=== PATIENT | female | born 1950 | race Native Hawaiian/Other Pacific Islander ===

== ENCOUNTER → 2017-02-28 | Outpatient (CLI) | payer MEDICARE ==
[~2017-02-28] MED LIST: DENOSUMAB 60 MG/ML 1 ML SYRINGE SQ NR
[2017-02-28 13:27] VITALS: BP 134/82; PULSE 72; RESP 16; TEMP 97.6
== END | disposition home or self-care (01) ==
LOC: PROCWHC3 12:26
PROVIDERS: ATTEND Family Medicine
DX: M81.0 Age-related osteoporosis without current pathological fracture (principal)
CPT/HCPCS: 96372; J0897

== ENCOUNTER → 2018-01-29 | Outpatient (CLI) | payer MEDICARE ==
--- NOTE | 2018-01-31 08:42 | MM ---
Reason for exam: screening (asymptomatic). Last mammogram was performed 1 year and 3 months ago. History: Patient is postmenopausal. Physical Findings: A clinical breast exam by your physician is recommended on an annual basis and results should be correlated with mammographic findings. MG 3D Screening Mammo W/Cad Bilateral CC and MLO view(s) were taken. Prior study comparison: October 20, 2016, bilateral MG 3d screening mammo w/cad. December 01, 2014, bilateral MG screening mammo w CAD. There are scattered fibroglandular densities. No significant changes when compared with prior studies. ASSESSMENT: Benign, BI-RAD 2 RECOMMENDATION: Routine screening mammogram of both breasts in 1 year.
== END | disposition home or self-care (01) ==
LOC: RADMAMWWP 13:38
PROVIDERS: ATTEND Family Medicine
DX: Z12.31 Encounter for screening mammogram for malignant neoplasm of breast (principal)
CPT/HCPCS: 77063; 77067

== ENCOUNTER → 2018-04-07 | Outpatient (CLI) | payer MEDICARE ==
[2018-04-07 10:56] LABS: Basophils # (A) 0.1 k/uL (0-0.2); Basophils % (A) 2 %; Eosinophils # (A) 0.1 k/uL (0-0.7); Eosinophils % (A) 2 %; HCT 39.8 % (34.0-46.0); Lymphocytes # (A) 1.4 k/uL (1.0-4.8); Lymphocytes % (A) 28 %; MCHC 32.6 g/dL (31.0-37.0); MCV 88.9 fL (80.0-100.0); Mean Platelet Volume 7.2; Monocytes # (A) 0.3 k/uL (0-1.0); Monocytes % (A) 5 %; Neutrophils % (A) 59 %; Platelet Count 234 k/uL (150-450); RBC 4.48 m/uL (3.80-5.40); RDW 12.1 % (11.5-15.5)
[2018-04-07 11:10] LABS: Potassium 4.6 mmol/L (3.5-5.1)
== END | disposition home or self-care (01) ==
LOC: LABPAT 10:00
PROVIDERS: ATTEND Obstetrics & Gynecology
DX: Z01.812 Encounter for preprocedural laboratory examination (principal); N81.10 Cystocele, unspecified; Z01.818 Encounter for other preprocedural examination
CPT/HCPCS: 36415; 80051; 82565; 82947; 84520; 85025; 87086; 93005

== ENCOUNTER 2018-04-17 05:46 | Day surgery (SDC) | payer MEDICARE ==
[2018-04-04 10:52] VITALS: BMI 26.5
--- NOTE | 2018-04-11 14:43 | HP ---
HISTORY AND PHYSICAL This is a 67-year-old female who presented to the office with increasing pelvic pressure, exacerbated by walking and any type of physical activity. She denies vaginal bleeding, urine leakage, or any bowel symptomatology. Examination in the office is consistent with grade 2-3 uterine prolapse along with grade 3-4 cystocele. No obvious rectocele was noted, good vaginal cuff support is noted. After consultation, patient is declining option for pessary use and would like to proceed with surgical repair. Second opinion has been offered and declined. PAST MEDICAL HISTORY: Significant for acquired hypothyroidism. PAST SURGICAL HISTORY: Surgery of the right wrist in 1998. CURRENT MEDICATIONS: 1. Levothyroxine 1 pill daily. 2. Vitamin B6 daily. 3. Vitamin C daily. 4. Vitamin D3 daily. 5. Citracal orally daily. ALLERGIES: None known. FAMILY HISTORY: Significant for heart disease, heart attack, and dementia. REPRODUCTIVE HISTORY: Significant for normal spontaneous vaginal delivery x4, all healthy and without complication. 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 PHYSICAL EXAM: This is a pleasant female, 5 foot 1 inch, 150 pounds, BMI 28, blood pressure 124/82. HEENT exam reveals good dentition, no thyromegaly, no cervical lymphadenopathy, good range of motion in the neck. BREAST exam reveals them to be bilaterally symmetric to inspection, atrophic, no nipple discharge, axillary adenopathy, discernible lesions or masses or skin changes. CARDIAC exam reveals regular rate and rhythm with no murmur, click, or rub. CHEST: Clear to auscultation in all parekh anteriorly and posteriorly. ABDOMINAL exam reveals a nontender abdomen, no organosplenomegaly, active bowel sounds. No CVA tenderness. EXTREMITIES reveal good peripheral pulses, no obvious edema, good range of motion. On examination of the genitourinary tract, there is a grade 3-4 cystocele noted, otherwise normal vaginal vault. Grade 2-3 uterine prolapse, no obvious cervical lesions. Adnexa are small, mobile, nontender, equal and symmetric bilaterally. Rectal exam reveals good sphincter tone, FIT negative stool. ASSESSMENT: Grade 2 to 3 uterine prolapse, increasing symptomatic Grade 4 cystocele. Patient choosing surgical correction. PLAN: The ACOG pamphlet on this procedure has been given to the patient for her review. All questions have been answered. We have discussed the risk of bleeding, infection, perforation, or damage to bowel, bladder, ureters, blood vessels, the unlikely but possible need for blood transfusion. We have discussed the possible risk of aspiration, nerve damage or even from the anesthesia or the procedure. All questions are answered. We will proceed with surgery as noted above. DORIAN / IJN: [id number] /
[~2018-04-17 05:46] MED LIST changes: -DENOSUMAB 60 MG/ML 1 ML SYRINGE SQ NR; +ceFAZolin IN SWFI 2 GM/20 ML SYRINGE IVP ONE
[2018-04-17] MEDS ORDERED: HYDROmorphone 0.5 MG/0.5 ML SYRINGE IVP PRN (06:13)
[2018-04-17] MEDS ORDERED: NALOXONE 0.4 MG/ML 1 ML VIAL IV PRN ×2 (06:13→08:17)
[2018-04-17] MEDS ORDERED: fentaNYL (PF) 50 MCG/ML 2 ML AMP IV PRN (06:13)
[2018-04-17] MEDS ORDERED: SCOPOLAMINE 1.5MG/72HR PATCH TRANSDERM ONE (06:13)
[2018-04-17] MEDS ORDERED: LIDOCAINE 1% 20 ML VIAL (10MG/ML) FOR IV START INTRADERMA PRN (06:13)
[2018-04-17] MEDS ORDERED: NALBUPHINE 10 MG/ML AMPUL IV PRN ×2 (06:13→08:17)
[2018-04-17] MEDS ORDERED: diphenhydrAMINE 50 MG/ML 1 ML VIAL IVP PRN ×3 (06:13→08:41)
[2018-04-17] MEDS ORDERED: MIDAZOLAM 2 MG/2 ML VIAL IV PRN (06:13)
[2018-04-17] MEDS ORDERED: DEXAMETHASONE SOD PHOSPHATE 10 MG/ML 1 ML VIAL IV ONE (06:13)
[2018-04-17] MEDS ORDERED: LACTATED RINGERS 1,000 ML IV SCH (06:15)
[2018-04-17] MEDS ORDERED: LACTATED RINGERS 1,000 ML IV ONE (06:57)
[2018-04-17] MEDS ORDERED: ONDANSETRON 4 MG/2 ML VIAL IVP ONE (06:59)
[2018-04-17] MEDS ORDERED: MIDAZOLAM 2 MG/2 ML VIAL ONE (07:29)
[2018-04-17] MEDS ORDERED: GLYCOPYRROLATE 0.2 MG/ML 2 ML VIAL ONE (07:29)
[2018-04-17] MEDS ORDERED: VASOPRESSIN 20 UNIT/ML 1 ML VIAL IM ONE (07:50)
[2018-04-17] MEDS ORDERED: MORPHINE SULFATE 4 MG/ML SYRINGE IVP PRN (08:17)
[2018-04-17] MEDS ORDERED: ONDANSETRON 4 MG/2 ML VIAL IVP PRN ×2 (08:17→08:41)
[2018-04-17] MEDS ORDERED: BACITRACIN 500 UNIT/GM OINT 28.4 GM TUBE TOPICAL ONE (08:19)
[2018-04-17] MEDS ORDERED: IBUPROFEN 600 MG TAB PO PRN (08:41)
[2018-04-17] MEDS ORDERED: Acetaminophen-Codeine 300-30mg TAB PO PRN (08:41)
[2018-04-17] MEDS ORDERED: METOCLOPRAMIDE 5 MG/ML 2 ML VIAL IVP PRN (08:41)
--- NOTE | 2018-04-17 08:41 | P.OP ---
Date of Procedure: 04/17/18 Preoperative Diagnosis: Uterine prolapse, cystocele Postoperative Diagnosis: Same, normal-appearing ovaries bilaterally Procedure(s) Performed: Vaginal hysterectomy, anterior colporrhaphy Anesthesia: ALETAA Surgeon: Liliana Granado Electrical Integrator #1: Eugenio Evans Estimated Blood Loss (ml): 25 IV fluids (ml): 700 Urine output (ml): 200 Pathology: other (Cervix and uterus) Condition: stable Disposition: PACU Description of Procedure: Patient is brought to the Ring suite where a spinal with Duramorph is given. She is positioned in the dorsal lithotomy position. The appropriate timeout is performed to assure proper patient and procedural identification. Antibiotics are given. The cervix, vagina, perineum and lower abdominal areas are all prepped and draped in usual sterile fashion. Bladder is drained for 200 mL of clear yellow urine. The weighted speculum was placed into the vagina and the anterior lip of the cervix is grasped with a double-tooth tenaculum. The cervix is injected circumferentially with a dilute Pitressin solution. A three affiliated blade scalpel is used to incise the cervix circumferentially with a V like positioning in the back.Mucosa is swept from the underlying fascial plane using a sponge. The peritoneum is entered at 6:00 and suture tied with 2-0 Vicryl. The large billed speculum was placed. Uterosacral cardinal ligaments are identified, clamped cut and held laterally with 0 Vicryl. 2 additional stitches are taken above each uterosacral cardinal ligament to completely obliterate the vasculature. Again, care is taken to keep the mucosa swept well from the plane to avoid bladder and/or ureteral injury. The uterus is "walked out" posteriorly, Fredy clamps are used across the final pedicles. Specimen is removed. The pedicles are tied with 0 Vicryl suture in a Lonnie stitch, flashed, and retied for excellent hemostasis. Sponge is used to visualize both ovaries and these are within normal limits, atrophic, and left in situ per the patient's wishes. The 2-0 Vicryl suture that was placed at 6:00 is then brought around in a pursestring fashion to close the peritoneum. The uterosacral cardinal ligaments are brought across to incorporate the opposite ligament and vaginal mucosa. 2 additional figure-of- eight sutures of 0 Vicryl are placed on the mucosa to close the cuff. Allis clamps are used on the anterior mucosa and it is injected with the same dilute Pitressin solution in the midline to approximately 1-1/2 cm inferior to the urethra. Sinclair catheter is placed in the bladder is again drained. You close it is opened with Metzenbaum scissors, the edges are held with Allis clamps and a fanlike fashion. Sponge rolled finger is used to sweep the underlying fascia from the overlying mucosa. 2-0 Vicryl sutures used in an interrupted fashion to bring the fascial edges together in the midline thereby completely reducing the cystocele. Metzenbaum scissors are used to trim the redundant mucosa. 2-0 Vicryl is used in a running locking stitch for final closure. Vagina is clean and dry. It is packed with one-inch iodophor gauze. All sponge needle and enhancement counts are correct. Patient is brought back to the recovery room in very good condition with stable vital signs including blood pressure 119/72, pulse 68, 98 and O2 saturation.
[2018-04-17] MEDS: KETOROLAC 30 MG/ML 1 ML VIAL IVP PRN ×3 (08:52→23:11)
[2018-04-17 23:07] VITALS: RESP 16
--- NOTE | 2018-04-18 05:57 | P.PN ---
Progress Note - Text Progress Note Date: 04/18/18 67 yo female Status post vaginal hysterectomy. Post-op day #1. Patient received intrathecal Duramorph. Patient was seen today, sitting up in bed no complaints, pain VAS score 2/10, no headache, no itching, no nausea and vomiting. Assessment and plan: Doing well in general no complications from anesthesia.
[2018-04-18] MEDS: KETOROLAC 30 MG/ML 1 ML VIAL IVP PRN (06:50)
--- NOTE | 2018-04-18 07:50 | P.DS ---
Providers Date of admission: 04/17/18 Expected date of discharge: 04/18/18 Attending physician: Liliana Granado Primary care physician: [facility] Course: This is a 67-year-old 3 para 3 who presented with an increasingly symptomatic cystocele and uterine prolapse. After thorough consultation, decision was made to proceed with vaginal hysterectomy and cystocele repair. Please see my dictated history and physical for details. Patient was admitted and underwent cystocele repair and vaginal hysterectomy yesterday. Ovaries appeared normal and were left in situ. Surgery went well, vagina was packed with iodoform gauze and Sinclair catheter placed. Please see my dictated operative note for details. This morning the patient is doing well. Her Sinclair catheter and vaginal packing had been removed. There is scant vaginal bleeding. She is tolerating regular food, voiding and ambulating. We are awaiting spontaneous void and we'll measure voided and postvoid residual at that time. She is having no pain at this point. Patient will likely be discharged home later today. She is in very good condition for discharge home. She will follow-up with me in the office in 2 weeks. I have reminded her no intercourse, tampons or douching. She will use [id number] Advil as needed for pain. She will call with any fevers shakes or chills, back pain, vaginal bleeding, with any issues questions or concerns. No heavy lifting, no car driving for 2 weeks. Patient Condition at Discharge: Good Plan - Discharge Summary Discharge Rx Participant: No New Discharge Prescriptions: No Action Pyridoxine [Vitamin B-6] 50 mg PO DAILY Levothyroxine Sodium [Levo-T] 75 mcg PO DAILY Cholecalciferol [Vitamin D3] 1,000 unit PO DAILY Ascorbic Acid [Vitamin C] 500 mg PO DAILY Calcium Carb/Vitamin D3/Vit K1 [Citracal Soft Chew] 1 each PO DAILY Discharge Medication List Ascorbic Acid [Vitamin C] 500 mg PO DAILY 02/28/17 [History] Cholecalciferol [Vitamin D3] 1,000 unit PO DAILY 02/28/17 [History] Levothyroxine Sodium [Levo-T] 75 mcg PO DAILY 02/28/17 [History] Pyridoxine [Vitamin B-6] 50 mg PO DAILY 02/28/17 [History] Calcium Carb/Vitamin D3/Vit K1 [Citracal Soft Chew] 1 each PO DAILY 04/04/18 [ History] Follow up Appointment(s)/Referral(s): Liliana Granado MD [STAFF PHYSICIAN] - 2 Weeks Patient Instructions/Handouts: Hysterectomy (DC)
[2018-04-18 08:32] VITALS: BP 110/60; PULSE 63; TEMP 99.1
== END 2018-04-18 11:20 | disposition home or self-care (01) ==
LOC: OR 05:46 → 4FBP 08:30 → OR 04-18 11:20
PROVIDERS: ATTEND Obstetrics & Gynecology
DX: N81.4 Uterovaginal prolapse, unspecified (principal); E03.9 Hypothyroidism, unspecified; Z79.890 Hormone replacement therapy
CPT/HCPCS: 58260; 57240; 88307; J2250; J1100; J2765; J2405; J1885 ×2; J0690; 86850; 86900; 86901

== ENCOUNTER → 2018-06-01 | Outpatient (CLI) | payer MEDICARE ==
[~2018-06-01] MED LIST changes: +DENOSUMAB 60 MG/ML 1 ML SYRINGE SQ NR; -ceFAZolin IN SWFI 2 GM/20 ML SYRINGE IVP ONE
[2018-06-01 11:28] VITALS: BP 126/79; PULSE 65; RESP 15; TEMP 97.9
== END | disposition home or self-care (01) ==
LOC: PROCWHC3 11:18
PROVIDERS: ATTEND Family Medicine
DX: M81.0 Age-related osteoporosis without current pathological fracture (principal)
CPT/HCPCS: 96372; J0897

== ENCOUNTER → 2018-10-22 | Outpatient (CLI) | payer MEDICARE ==
--- NOTE | 2018-10-22 12:52 | BD ---
EXAMINATION TYPE: Axial Bone Density DATE OF EXAM: 10/22/2018 CLINICAL HISTORY: Postmenopausal female. Osteoporosis screening. Height: 61.5 Weight: 147 FRAX RISK QUESTIONS: Alcohol (3 or more units per day): no Family History (Parent hip fracture): no Glucocorticoids (More than 3mos): no (Ex: prednisone, prednisolone, methylprednisolone, dexamethasone, and hydrocortisone). History of Fracture in Adulthood: yes Secondary Osteoporosis: 1. Type 1 Diabetes: no 2. Hyperthyroidism: not now, now underactive 3. Menopause before 45: no 4. Malnutrition: no 5. Chronic liver disease: no Rheumatoid Arthritis: no Current Tobacco Use: no RISK FACTORS HISTORY OF: History of Wrist Fracture: yes When: over 10 years ago Surgery to Wrist (right): yes When: over 10 years ago Family History of Osteoporosis: maybe mother Active: yes Diet low in dairy products/other sources of calcium: no Postmenopausal woman: yes Take estrogen and/or progesterone medications: no Lost more than 2 inches in height since high school: unsure, may have been about 63 inches tall at on e time Frequent falls: no Poor Health: no Hyperparathyroidism: no Adrenal Insufficiency: no MEDICATIONS: Prednisone or other steroids: no Thyroid Medications: yes Which medication: Levothyroxine How Long: about 5 years or more Osteoporosis Medications: yes Which medication: Prolia How Long: every 6 months Additional Medications: Vitamin B, C, D, Glucosamine Additional History: EXAM MEASUREMENTS: Bone mineral densitometry was performed using the MMIS System. Bone mineral density as measured about the Lumbar spine is: ----- L1-L4(G/cm2): 0.991 T Score Values are as follows: ----- L2: -2.3 ----- L3: -1.9 ----- L4: -1.5 ----- L1-L4: -1.6 Bone mineral density has: Decreased -0.9% since study of: 10/20/2016 Bone mineral density about the R hip (g/cm2): 0.742 Bone mineral density about the L hip (g/cm2): 0.740 T Score values are as follows: -----R Neck: -2.1 -----L Neck: -2.1 -----R Total: -1.2 -----L Total: -1.7 Bone mineral density has: Increased 1.5% since study of: 10/20/2016 IMPRESSION: Osteopenia (T Score between -2.5 and -1). There is slightly increased risk of fracture and the patient may be considered for treatment. Re-Screen 2-5 years. NOTE: T-SCORE=SD OF THE YOUNG ADULT MEAN.
== END | disposition home or self-care (01) ==
LOC: RADBDWWP 09:41
PROVIDERS: ATTEND Family Medicine
DX: M85.80 Other specified disorders of bone density and structure, unspecified site (principal)
CPT/HCPCS: 77080

== ENCOUNTER → 2018-12-05 | Outpatient (CLI) | payer MEDICARE ==
[~2018-12-05] MED LIST changes: -DENOSUMAB 60 MG/ML 1 ML SYRINGE SQ NR; +DENOSUMAB 60 MG/ML 1 ML SYRINGE SQ ONE
[2018-12-05 11:22] VITALS: BP 130/81; PULSE 68; RESP 16; TEMP 97.8
== END | disposition home or self-care (01) ==
LOC: PROCWHC3 10:49
PROVIDERS: ATTEND Family Medicine
DX: M81.0 Age-related osteoporosis without current pathological fracture (principal)
CPT/HCPCS: 96372; J0897

== ENCOUNTER → 2019-03-23 | Outpatient (CLI) | payer MEDICARE ==
--- NOTE | 2019-03-25 09:49 | MM ---
Reason for exam: screening (asymptomatic). Last mammogram was performed 1 year and 2 months ago. History: Patient is postmenopausal. Physical Findings: A clinical breast exam by your physician is recommended on an annual basis and results should be correlated with mammographic findings. MG 3D Screening Mammo W/Cad Bilateral CC and MLO view(s) were taken. Prior study comparison: January 29, 2018, bilateral MG 3d screening mammo w/cad. October 20, 2016, bilateral MG 3d screening mammo w/cad. There are scattered fibroglandular densities. There is no discrete abnormality. No significant changes when compared with prior studies. ASSESSMENT: Negative, BI-RAD 1 RECOMMENDATION: Routine screening mammogram of both breasts in 1 year.
== END | disposition home or self-care (01) ==
LOC: RADMAMWWP 09:49
PROVIDERS: ATTEND Family Medicine
DX: Z12.31 Encounter for screening mammogram for malignant neoplasm of breast (principal)
CPT/HCPCS: 77063; 77067

== ENCOUNTER → 2019-06-19 | Outpatient (CLI) | payer MEDICARE ==
[2019-06-19 11:15] VITALS: BP 131/71; PULSE 59; RESP 16; TEMP 98.6
== END | disposition home or self-care (01) ==
LOC: PROCWHC3 10:58
PROVIDERS: ATTEND Family Medicine
DX: M81.0 Age-related osteoporosis without current pathological fracture (principal)
CPT/HCPCS: 96372; J0897

== ENCOUNTER 2019-09-06 10:58 | Day surgery (SDC) | payer MEDICARE ==
[2019-09-04 14:30] VITALS: BMI 26.5
[~2019-09-06 10:58] MED LIST changes: -DENOSUMAB 60 MG/ML 1 ML SYRINGE SQ ONE; +LACTATED RINGERS 1,000 ML IV SCH; +LIDOCAINE 1% 20 ML VIAL (10MG/ML) FOR IV START INTRADERMA PRN
[2019-09-06 12:00] VITALS: RESP 16; TEMP 97.8
[2019-09-06] MEDS ORDERED: PROPOFOL 10 MG/ML 20 ML VIAL IV ONE (12:38)
--- NOTE | 2019-09-06 12:54 | P.PCN ---
Date of Procedure: 09/06/19 Procedure(s) Performed: BRIEF HISTORY: Patient is a 68-year-old pleasant female scheduled for an elective colonoscopy as a part of screening for colorectal neoplasia. Last colonoscopy was 10 years ago. PROCEDURE PERFORMED: Colonoscopy. PREOPERATIVE DIAGNOSIS: Screening for colon cancer. IV sedation per Anesthesia. PROCEDURE: After informed consent was obtained, the patient, was brought into the endoscopy unit. IV sedation was administered by Anesthesia under continuous monitoring. Digital rectal examination was normal. Initially the Olympus CF-160 flexible video colonoscope was then inserted in the rectum, gradually advanced into the cecum without any difficulty. Careful examination was performed as the scope was gradually being withdrawn. Ileocecal valve and the appendiceal orifice were visualized and appeared normal. Prep was excellent. Mucosa of the cecum, ascending colon, transverse colon, descending colon, sigmoid colon, and rectum appeared normal. Scattered left sided diverticulosis seen. Retroflexion was performed in the rectum and no lesions were seen. The patient tolerated the procedure well. IMPRESSION: Normal-appearing colon from rectum to cecum with no evidence of colorectal neoplasia. Scattered sigmoid diverticulosis RECOMMENDATIONS: Findings of this examination were discussed with the patient as well as a family. She was advised to have a repeat screening colonoscopy in 10 years.
[2019-09-06 13:22] VITALS: BP 128/82; PULSE 81
== END 2019-09-06 13:46 | disposition home or self-care (01) ==
LOC: ORWHC2ENDO 10:58
PROVIDERS: ATTEND Internal Medicine Gastroenterology
DX: Z12.11 Encounter for screening for malignant neoplasm of colon (principal); K57.30 Diverticulosis of large intestine without perforation or abscess without bleeding; E07.9 Disorder of thyroid, unspecified; Z79.890 Hormone replacement therapy
CPT/HCPCS: J2704; G0121

== ENCOUNTER → 2019-12-24 | Outpatient (CLI) | payer MEDICARE ==
[~2019-12-24] MED LIST changes: +DENOSUMAB 60 MG/ML 1 ML SYRINGE SQ ONE; -LACTATED RINGERS 1,000 ML IV SCH; -LIDOCAINE 1% 20 ML VIAL (10MG/ML) FOR IV START INTRADERMA PRN
[2019-12-24 14:41] VITALS: BP 115/67; PULSE 67; RESP 16; TEMP 98.1
== END | disposition home or self-care (01) ==
LOC: PROCWHC3 14:10
PROVIDERS: ATTEND Family Medicine
DX: M81.0 Age-related osteoporosis without current pathological fracture (principal)
CPT/HCPCS: 96372

== ENCOUNTER → 2020-07-01 | Outpatient (CLI) | payer MEDICARE, OTHER ==
[~2020-07-01] MED LIST changes: +DENOSUMAB 60 MG/ML 1 ML SYRINGE SQ NR; -DENOSUMAB 60 MG/ML 1 ML SYRINGE SQ ONE
[2020-07-01 14:37] VITALS: BP 138/75; PULSE 68; RESP 16; TEMP 98.2
== END | disposition home or self-care (01) ==
LOC: PROCWHC3 14:23
PROVIDERS: ATTEND Family Medicine
DX: M81.0 Age-related osteoporosis without current pathological fracture (principal)
CPT/HCPCS: 96372; J0897

== ENCOUNTER → 2021-01-08 | Outpatient (CLI) | payer MEDICARE ==
[2021-01-08 13:39] VITALS: BP 139/79; PULSE 67; RESP 16; TEMP 98.5
== END | disposition home or self-care (01) ==
LOC: PROCWHC3 13:22
PROVIDERS: ATTEND Family Medicine
DX: M81.0 Age-related osteoporosis without current pathological fracture (principal)
CPT/HCPCS: 96372; J0897

== ENCOUNTER → 2021-07-30 | Outpatient (CLI) | payer MEDICARE ==
--- NOTE | 2021-08-02 10:25 | MM ---
Reason for exam: screening (asymptomatic). Last mammogram was performed 1 year and 2 months ago. History: Patient is postmenopausal. Physical Findings: A clinical breast exam by your physician is recommended on an annual basis and results should be correlated with mammographic findings. MG 3D Screening Mammo W/Cad Bilateral CC and MLO view(s) were taken. Prior study comparison: June 12, 2020, bilateral MG 3d screening mammo w/cad. March 23, 2019, bilateral MG 3d screening mammo w/cad. There are scattered fibroglandular densities. Stable benign calcifications. There is no discrete abnormality. No significant changes when compared with prior studies. ASSESSMENT: Benign, BI-RAD 2 RECOMMENDATION: Routine screening mammogram of both breasts in 1 year.
== END | disposition home or self-care (01) ==
LOC: RADMAMWWP 11:33
PROVIDERS: ATTEND Family Medicine
DX: Z12.31 Encounter for screening mammogram for malignant neoplasm of breast (principal); Z78.0 Asymptomatic menopausal state
CPT/HCPCS: 77063; 77067

== ENCOUNTER → 2021-08-05 | Outpatient (CLI) | payer MEDICARE ==
--- NOTE | 2021-08-05 18:47 | BD ---
EXAMINATION TYPE: Axial Bone Density DATE OF EXAM: 08/05/2021 COMPARISON: 10.22.2018 CLINICAL HISTORY: 70 YR OLD FEMALE.....ICD-10 CODE: M81.0 OSTEOPOROSIS Height: 61 Weight: 149 FRAX RISK QUESTIONS: History of Fracture in Adulthood: YES RISK FACTORS HISTORY OF: History of Wrist Fracture: YES, HER RIGHT, AN ADULT Surgery to TO RT WRIST AN ADULT Postmenopausal woman: YES AT AGE 48 YRS OLD Hyperparathyroidism: NO Adrenal Insufficiency: NO MEDICATIONS: Thyroid Medications: YES, SYNTHROID PRODUCT, FOR ABOUT 8 YRS Osteoporosis Medications: PROLIA, FOR ABOUT 3 YRS Additional Medications: VIT D AND C Additional History: THYROID ONLY EXAM MEASUREMENTS: Bone mineral densitometry was performed using the HiperScan System. Bone mineral density as measured about the Lumbar spine is: ----- L1-L4(G/cm2): 1.045 T Score Values are as follows: ----- L1: -0.1 ----- L2: -1.8 ----- L3: -2.1 ----- L4: -0.7 ----- L1-L4: -1.1 Bone mineral density has: Increased 4.4% since study of: 10.22.2018 Bone mineral density about the R hip (g/cm2): 0.899 Bone mineral density about the L hip (g/cm2): 0.812 T Score values are as follows: -----R Neck: -2.0 -----L Neck: -1.7 -----R Total: -0.9 -----L Total: -1.6 Bone mineral density has: Increased 3.6% since study of: 10.22.2018 FRAX%s: THERE IS A 11.4% CHANCE FOR A MAJOR OSTEOPOROTIC FX AND A 2.3% FOR HIP.....PROBABILITY FO R FX IN 10 YRS TIME IMPRESSION: Osteopenia (T Score between -2.5 and -1). There is slightly increased risk of fracture and the patient may be considered for treatment. Re-Screen 2-5 years. NOTE: T-SCORE=SD OF THE YOUNG ADULT MEAN.
== END | disposition home or self-care (01) ==
LOC: RADBDWWP 10:45
PROVIDERS: ATTEND Family Medicine
DX: M85.89 Other specified disorders of bone density and structure, multiple sites (principal)
CPT/HCPCS: 77080

== ENCOUNTER → 2021-08-24 | Outpatient (CLI) | payer MEDICARE ==
[2021-08-24 10:59] VITALS: BP 119/79; PULSE 79; RESP 16; TEMP 98.8
== END ==
LOC: PROCWHC3 10:38
PROVIDERS: ATTEND Family Medicine
DX: M81.0 Age-related osteoporosis without current pathological fracture (principal); Z87.891 Personal history of nicotine dependence
CPT/HCPCS: 96372; J0897

== ENCOUNTER → 2022-10-19 | Outpatient (CLI) | payer MEDICARE ==
--- NOTE | 2022-10-19 13:41 | MM ---
Reason for Exam: Screening (asymptomatic). Last mammogram was performed 1 year(s) and 2 month(s) ago. Patient History: Menarche at age 14. First Full-Term at age 22. Postmenopausal. Risk Values: Sheri 5 year model risk: 1.4%. NCI Lifetime model risk: 3.8%. Prior Study Comparison: 03/23/2019 Bilateral Screening Mammogram, [facility]. 06/12/2020 Bilateral Screening Mammogram, [facility]. 07/30/2021 Bilateral Screening Mammogram, [facility]. Tissue Density: There are scattered fibroglandular densities. Findings: Analyzed By CAD. There is no suspicious group of microcalcifications or new suspicious mass in either breast. Overall Assessment: Negative, BI-RAD 1 Management: Screening Mammogram of both breasts in 1 year. A clinical breast exam by your physician is recommended on an annual basis and results should be correlated with mammographic findings. Electronically signed and approved by: Mil Mclaughlin M.D. Radiologis
== END | disposition home or self-care (01) ==
LOC: RADMAMWWP 11:01
PROVIDERS: ATTEND Family Medicine
DX: Z12.31 Encounter for screening mammogram for malignant neoplasm of breast (principal); Z78.0 Asymptomatic menopausal state
CPT/HCPCS: 77063; 77067

== ENCOUNTER → 2023-05-10 | Outpatient (CLI) | payer MEDICARE ==
--- NOTE | 2023-05-10 12:48 | CA ---
Exercise Stress Test Report Name: Olimpia De La Torre Exam Date: 05/10/2023 11:07 Exam Location: [place] Stress Ht (in): 62 Wt (lb): 149 BSA: 1.69 Ordering Phys: Pool Singh DO Referring Phys: Day Hackett PAC Technologist: Aron Harmon Age: 72 Gender: F : 1950 Procedure CPT: Indications: R06.02 SOB ICD-10 Codes: Patient History: DIFFICULTY IN BREATHING, PALPITAITONS, ELEVATED CHOLESTEROL LEVELS, FAMILY HX OF HEART DISEASE Medications: LEVOTHYROXINE,,,,,, ROSUVASTATIN,,,,, Meds past 24 hrs: Pretest Chest Pain: STRESS TEST Jordan Protocol Exercise Duration (min:sec): 04:[address] Depressions (mm): Angina Score: Rai Score: Resting HR (bpm): 69 Peak HR (bpm): 139 Resting BP (mmHg): 114 / 66 Peak BP (mmHg): 181 / 71 MPHR: 147 Target HR: 125 % MPHR: 95 METS: 6.5 Total Dose: Peak Dose: Atropine: Double Product: 87421 BP Response: Stress Termination: TARGET HR REACHED/MAX EXERTION Stress Symptoms: DIFFICULTY IN BREATHING Stress Summary: ECG ANALYSIS Resting ECG: Stress ECG: CONCLUSIONS Patient underwent exercise stress EKG with a Jordan protocol treadmill stress test. Patient exercised into Stage 1 for a total of 4 minutes reaching a total of 6.5 METS. Patient's maximum heart rate was 139 which represented 94% age-predicted maximum heart rate. Stress EKG findings: At baseline patient's EKG showed normal sinus rhythm, normal axis, no significant ST-T wave abnormalities. At peak exercise, EKG showed nonspecific 0.[address] depressions which is nonspecific. Conclusions: 1. Normal EKG response to exercise without evidence of inducible ischemia. 2. Poor exercise capacity. Dr. Manny Younger DO (Electronically Signed) Final Date: 10 May 2023 12:48
--- NOTE | 2023-05-11 12:19 | CA ---
Transthoracic Echo Report Name: Olimpia De La Torre Age: 72 Gender: F : 1950 Exam Date: 05/10/2023 11:32 Exam Location: [place] Echo Ht (in): 62 Wt (lb): 149 Ordering Physician: Pool Singh DO Attending/Referring Phys: Day Hackett PAC [employer] Molder Jacque Fountain RDCS Procedure CPT: Indications: R06.02 SOB Cardiac Hx: Technical Quality: Poor Contrast 1: Total Dose (mL): Contrast 2: Total Dose (mL): MEASUREMENTS (Male / Female) Normal Values 2D ECHO LV Diastolic Diameter PLAX 3.6 cm 4.2 - 5.9 / 3.9 - 5.3 cm LV Systolic Diameter PLAX 2.5 cm IVS Diastolic Thickness 0.8 cm 0.6 - 1.0 / 0.6 - 0.9 cm LVPW Diastolic Thickness 0.8 cm 0.6 - 1.0 / 0.6 - 0.9 cm LV Relative Wall Thickness 0.4 RV Internal Dim ED PLAX 3.5 cm LA Volume 36.1 cm??? 18 - 58 / 22 - 52 cm??? M-MODE Aortic Root Diameter MM 2.9 cm LA Systolic Diameter MM 4.0 cm LA Ao Ratio MM 1.4 AV Cusp Separation MM 2.1 cm DOPPLER AV Peak Velocity 123.7 cm/s AV Peak Gradient 6.1 mmHg AV Mean Velocity 85.7 cm/s AV Mean Gradient 3.4 mmHg AV Velocity Time Integral 24.5 cm LVOT Peak Velocity 100.6 cm/s LVOT Peak Gradient 4.1 mmHg LVOT Velocity Time Integral 19.6 cm MV Area PHT 2.8 cm??? Mitral E Point Velocity 54.0 cm/s Mitral A Point Velocity 83.1 cm/s Mitral E to A Ratio 0.6 MV Deceleration Time 270.0 ms MV E' Velocity 6.8 cm/s Mitral E to MV E' Ratio 8.0 TR Peak Velocity 202.3 cm/s TR Peak Gradient 16.4 mmHg Right Ventricular Systolic Press 21.0 mmHg FINDINGS Left Ventricle Normal Left ventricular size, wall thickness, systolic function with no obvious regional wall motion abnormalities. Normal Left ventricular diastolic filling pattern. Left ventricular ejection fraction is estimated at 55-60 %. Right Ventricle Normal right ventricular size.. Right ventricular systolic pressure within normal limits. Right Atrium Normal right atrial size. Left Atrium Normal left atrial size. Interatrial septal aneurysm. Mitral Valve Structurally normal mitral valve. Trace to mild mitral regurgitation. Aortic Valve Trileaflet aortic valve. No aortic valve stenosis or regurgitation. Thickened aortic valve without stenosis. Tricuspid Valve Structurally normal tricuspid valve. Mild tricuspid regurgitation. Pulmonic Valve Structurally normal pulmonic valve. Trace pulmonic regurgitation. Pericardium No pericardial effusion. Aorta Normal size aortic root and proximal ascending aorta. CONCLUSIONS Left ventricular ejection fraction 55-60% Trace to mild mitral regurgitation Mild tricuspid regurgitation Previewed by: Dr. Manny Younger DO (Electronically Signed) Final Date: 11 May 2023 12:18
== END | disposition home or self-care (01) ==
LOC: RADNMMAIN 10:37
PROVIDERS: ATTEND Family Medicine
DX: R06.02 Shortness of breath (principal); R53.83 Other fatigue
CPT/HCPCS: 93017; 93306

== ENCOUNTER → 2023-09-01 | Outpatient (CLI) | payer MEDICARE ==
--- NOTE | 2023-09-01 10:02 | CT ---
EXAMINATION TYPE: CT shoulder LT wo con DATE OF EXAM: 09/01/2023 COMPARISON: None HISTORY: 72-year-old female S42.232D 3-PART FX SURG NECK OF L HUMERUS, SUBS FO TECHNIQUE: Contiguous axial scanning of the left shoulder without IV contrast. Coronal and sagittal r econstructions performed. 3-D reconstructions generated on a dedicated independent workstation. CT DLP: 391 mGycm Automated exposure control for dose reduction was used. FINDINGS: Degenerative joint space narrowing at the acromioclavicular joint. There is an impacted surgical neck fracture. There is anteromedial displacement of up to 1.3 cm. There are comminuted fractures involving both greater and lesser tuberosities. These fragments are va riably displaced. Many large fragments extend into the subacromial space, likely reflecting a functio nal rotator cuff tear. The coracoid tip appears to nearly abut the lesser tuberosity fracture fragment. Fracture lines exten d along the bicipital groove. There may be mild underlying degenerative spurring at the glenohumeral joint. Tiny 2 mm loose body anterior inferior aspect of the glenohumeral joint space. The glenohumeral joint appears to otherwise remain intact. Extensive biapical pleural parenchymal scarring. IMPRESSION: 1. THREE-PART FRACTURE OF THE PROXIMAL LEFT HUMERUS. THIS INCLUDES A TRANSVERSE FRACTURE OF THE SURGI ALISON NECK WITH ANTEROMEDIAL DISPLACEMENT OF UP TO 1.3 CM. ALSO INCLUDES COMMINUTED FRACTURES OF BOTH G REATER AND LESSER TUBEROSITIES. LARGE FRAGMENTS OF THE GREATER TUBEROSITY ARE DISPLACED INTO THE SUBA CROMIAL SPACE AND LIKELY REFLECTS A FUNCTIONAL ROTATOR CUFF TEAR. 2. MODERATE AC JOINT OA.
[2023-09-01 10:56] LABS: Prothrombin Time 10.6 sec (9.0-12.0)
[2023-09-01 16:14] LABS: Appearance,Urine Clear (Clear); Bilirubin,Urine Negative (Negative); Blood,Urine Negative (Negative); Color,Urine Yellow (Yellow); Ketones,Urine Negative (Negative); Nitrite,Urine Negative (Negative); Specific Gravity,Urine 1.015 (1.001-1.030); Urobilinogen,Urine 0.2 E.U./DL
[2023-09-01 16:17] LABS: Bacteria,Urine None Seen (None Seen)
[2023-09-01 16:28] LABS: Basophils # (A) 0.14 X 10*3/uL (0.00-0.10); Basophils % (A) 1.7 %; Eosinophils # (A) 0.23 X 10*3/uL (0.04-0.35); Eosinophils % (A) 2.7 %; HCT 38.2 % (37.2-46.3); HGB 11.8 d/dL (12.0-15.0); Lymphocytes # (A) 1.91 X 10*3/uL (0.90-5.00); Lymphocytes % (A) 22.8 %; MCH 29.6 pg (27.0-32.0); MCHC 30.9 d/dL (32.0-37.0); MCV 95.7 FL (80.0-97.0); Mean Platelet Volume 10.7 FL (9.5-12.2); Monocytes % (A) 7.2 %; NRBC Per 100 WBC 0 X 10*3/uL (0.00-0.01); Neutrophils # (A) 5.45 X 10*3/uL (1.80-7.70); Platelet Count 267 X 10*3/uL (140-440); RBC 3.99 X 10*6/uL (4.10-5.20); RDW 12.5 % (11.5-14.5); WBC 8.38 X 10*3/uL (4.50-10.00)
[2023-09-01 16:38] LABS: ALT 18 U/L (8-44); AST 30 U/L (13-35); Albumin 4.4 d/dL (3.8-4.9); Albumin/Globulin Ratio 1.38 Ratio (1.60-3.17); Alkaline Phosphatase 118 U/L (41-126); BUN/Creat Ratio 24.91 Ratio (12.00-20.00); Blood Urea Nitrogen 27.4 mg/dL (9.0-27.0); Calcium 10.2 mg/dL (8.7-10.3); Carbon Dioxide 25.3 mmol/L (21.6-31.8); Chloride 102 mmol/L (96-109); Globulin 3.2 d/dL (1.6-3.3); Glucose 86 mg/dL (70-110); Potassium 4.9 mmol/L (3.5-5.5); Sodium 137 mmol/L (135-145); Total Bilirubin 0.5 mg/dL (0.3-1.2); Total Protein 7.6 d/dL (6.2-8.2)
== END | disposition home or self-care (01) ==
LOC: RADCTMAIN 08:07
PROVIDERS: ATTEND Orthopaedic Surgery Hand Surgery
DX: Z01.818 Encounter for other preprocedural examination (principal); M19.012 Primary osteoarthritis, left shoulder; S52.572D Other intraarticular fracture of lower end of left radius, subsequent encounter for closed fracture with routine healing; S42.232D 3-part fracture of surgical neck of left humerus, subsequent encounter for fracture with routine healing; X58.XXXD Exposure to other specified factors, subsequent encounter
CPT/HCPCS: 80053; 81001; 85025; 85610; 85730; 87070; 93005

== ENCOUNTER 2023-09-05 11:03 | Day surgery (SDC) | payer MEDICARE ==
[~2023-09-05 11:03] MED LIST changes: +ACETAMINOPHEN TAB 500 MG TAB PO PRN; +CLINDAMYCIN 900 MG in DEXTROSE 5% IN WATER 50 ML IVPB PRN; -DENOSUMAB 60 MG/ML 1 ML SYRINGE SQ NR; +DEXAMETHASONE SOD PHOSPHATE 4 MG/ML 1 ML VIAL IV ONE; +GABAPENTIN 300 MG CAP PO PRN; +HYDROmorphone 0.5 MG/0.5 ML SYRINGE IVP PRN; +LIDOCAINE 1% (10MG/ML) FOR IV START INTRADERMA PRN; +MELOXICAM 7.5 MG TAB PO PRN; +MIDAZOLAM 2 MG/2 ML VIAL IV PRN; +ONDANSETRON 4 MG/2 ML VIAL IVP ONE; +ONDANSETRON 4 MG/2 ML VIAL IVP PRN
[2023-09-05] MEDS ORDERED: LACTATED RINGERS 1,000 ML IV ONE ×2 (11:43→15:40)
[2023-09-05] MEDS ORDERED: ONDANSETRON 4 MG/2 ML VIAL IVP ONE (12:19)
[2023-09-05] MEDS ORDERED: DEXAMETHASONE SOD PHOSPHATE 4 MG/ML 1 ML VIAL IVP ONE (12:19)
[2023-09-05] MEDS ORDERED: MELOXICAM 7.5 MG TAB PO ONE (12:19)
[2023-09-05] MEDS ORDERED: ACETAMINOPHEN TAB 500 MG TAB PO ONE (12:19)
[2023-09-05] MEDS ORDERED: GABAPENTIN 300 MG CAP PO ONE (12:20)
[2023-09-05] MEDS ORDERED: MIDAZOLAM 2 MG/2 ML VIAL IVP ONE ×2 (12:54)
--- NOTE | 2023-09-05 13:10 | P.ANPRN ---
Procedure Note - Anesthesia - Nerve Block Performed Left Interscalene Single Time Out Performed: Yes Date of Procedure: 09/05/23 Procedure Start Time: 12:53 Procedure Stop Time: 12:57 Location of Patient: PreOp Indication: Acute Post-Operative Pain, Requested by Surgeon Sedation Type: Sedate with meaningful contact maintained Preparation: Sterile Prep Position: Supine Needle Types: Pajunk Needle Gauge: 21 Ultrasound used to visualize needle placement: Yes Ultrasound used to observe medication spread: Yes Blood Aspirated: No Pain Paresthesia on Injection Noted: No Resistance on Injection: Normal Image Stored and Saved: Yes Events: Uneventful and Well Tolerated (Ropivacaine 0.5% 20 mL plus dexamethasone 4 mg)
[2023-09-05] MEDS ORDERED: ONDANSETRON 4 MG/2 ML VIAL IVP PRN (13:11)
[2023-09-05] MEDS ORDERED: HYDROmorphone 0.5 MG/0.5 ML SYRINGE IVP PRN ×3 (13:11)
[2023-09-05] MEDS ORDERED: SENNOSIDES-DOCUSATE SODIUM 1 EACH TAB PO PRN (13:11)
[2023-09-05] MEDS ORDERED: DEXAMETHASONE SOD PHOSPHATE 4 MG/ML 1 ML VIAL ONE (13:25)
[2023-09-05] MEDS ORDERED: NEOSTIGMINE 1 MG/ML 10 ML VIAL ONE (13:25)
[2023-09-05] MEDS ORDERED: GLYCOPYRROLATE 0.2 MG/ML 2 ML VIAL ONE (13:25)
[2023-09-05] MEDS ORDERED: ROPIVACAINE 5 MG/ML 30 ML VIAL ONE (13:25)
[2023-09-05] MEDS ORDERED: ROCURONIUM 10 MG/ML (5 ML VIAL) IV ONE (13:25)
[2023-09-05] MEDS ORDERED: LIDOCAINE 1% INJ 10MG/ML (20 ML MDV) ONE (13:25)
[2023-09-05] MEDS ORDERED: ePHEDrine 50 MG/ML 1 ML VIAL ONE (13:25)
[2023-09-05] MEDS ORDERED: PHENYLEPHRINE 10 MG/ML 5 ML VIAL ONE (13:25)
[2023-09-05] MEDS ORDERED: PROPOFOL 10 MG/ML 20 ML VIAL IV ONE (13:25)
[2023-09-05] MEDS ORDERED: fentaNYL (PF) 50 MCG/ML 2 ML AMP ONE (13:25)
[2023-09-05] MEDS ORDERED: SUCCINYLCHOLINE CHLORIDE 200 MG/10 ML VIAL IV ONE (13:25)
[2023-09-05] MEDS ORDERED: ceFAZolin 1,000 MG in SODIUM CHLORIDE 0.9% 1,000 ML IRRIGATION ONE (14:06)
[2023-09-05] MEDS ORDERED: CLINDAMYCIN 600 MG/50 ML-D5W 600 MG in DEXTROSE/WATER 1 50ML.BAG IVPB STA (14:23)
--- NOTE | 2023-09-05 17:19 | P.OP ---
Date of Procedure: 09/05/23 Preoperative Diagnosis: left proximal humerus fracture Postoperative Diagnosis: left proximal humerus fracture Procedure(s) Performed: left reverse total shoulder arthroplasty Implants: Arthrex Revers Glenoid - 10deg augment with 20mm post, 33+4 glenosphere Humerus - size 7 stem, 33neutral cup with 33+3 poly Anesthesia: gino MCKEON Surgeon: Sirisha Whiteside Drying Unit Felting Machine Operator #1: Judy Alvarez Estimated Blood Loss (ml): 100 Pathology: other (humeral head) Condition: stable Disposition: PACU Indications for Procedure: Olimpia had a ground level fall and sustained a distal radius fracture and 4 part proximal humerus fracture on the left. She is s/p distal radius ORIF and is here today for reverse total shoulder for her proximal humerus fracture. We had a long discussion about her treatment options and she has decided to proceed wi th arthroplasty. Description of Procedure: The patient, operative extremity, and procedure were identified in the preop holding area. After informed consent was obtained, she received a regional block and was brought back to the OR where she was placed under general and placed in the beach chair position. All bony and neurovascular structures were well padded. The upper extremity was then prepped and draped in normal sterile fashion. An oblique incision was then made from the corocoid towards the attachment of the deltoid. Dissection was carried down to the delto pec interval and the cephalic vein was identified and mobilized laterally. About 5mm of the pectoralis insertion was released. A lozoya elevator was swept under the acormion to clear the subdeltoid space. The conjoined tendon was identified and the clavipectoral fascia was released to allow for placement of the nathanael retractor. The biceps tendon was located in the groove and released. A tenode sis was performed distal to the bicipital groove with an 0 vicyrl. A saw and lozoya elevator were used to separate the lesser and greater tuberosities to access the humeral head. The subscapularis was carefully freed and the tendon and lesser tuberosity was tucked medially. A ronguer was utilized to remove the remaining collapsed head. The greater tuberosity was freed . Both tuberosities were tagged with #3 fiberwire. Attention was then turned to the glenoid. The biceps tendon was followed to the labrum which was removed using bovey cautery. The axillary nerve was palpated and protected. The edges of the glenoid were exposed. The aiming guide was used to insert the guide pin at the center of the glenoid. The appropriate reamers were utilized to create the bleediing bone base for the glenoid. The central hold was drilled and the base plate was inserted with the post. A nonlocking screw was inserted inferiorly and locking screws were placed in the superior and posterior positions. A +3 glenosphere trial was then impacted and fixed. Attention was then turned to the humerus. The opening reamers were utilized followed by serial broaches with about 20 degrees of retroversion. A size 7 was found to be a good fit with rotational and axial stability. The cup and neutral poly trial was assembled. The lateral edge was about 5.6cm from the deltoid insertion. Reduction showed a stable joint with good range of motion. Minimal shuck. The joint was dislocated and the trial components were disengaged. The wound was cleaned with pulse lavage and the final implants were inserted. The glenosphere screw was tightened with a torque indicator to past 4 N/m. The poly was impacted into the suture cup until it was seated. The joint was reduced again with good stability and minimal shuck and good range of motion. The construct was copiously irrigated with pulse lavage. Two larkshead knots were set to bring the two tuberosities together. A fibertape suture was threaded through the suture cup for an around the world construct. The tuberosities were reduced and fixed with an around the world construct with fibertape and fiberwire sutures. The wound was closed in a layered fashion with 0 vicryl, 3.0 vicryl, 4.0 monocryl, and skin glue. Wound was dressed with a provena dressing.
--- NOTE | 2023-09-05 17:44 | XR ---
EXAMINATION TYPE: XR shoulder limited LT DATE OF EXAM: 09/05/2023 COMPARISON: None HISTORY: Left shoulder prosthesis placement TECHNIQUE: AP left shoulder FINDINGS: Left shoulder prosthesis is in place. A fracture fragment is present posterior to the prost hesis. The glenoid component appears intact. No additional areas suspicious for fracture. IMPRESSION: 1. There is a fracture fragment posterior to the prosthesis, no additional fractures of the humerus are identified.
[2023-09-05] MEDS: LACTATED RINGERS 1,000 ML IV SCH (17:48)
--- NOTE | 2023-09-05 17:53 | P.CONS ---
History of Present Illness - Reason for Consult Consult date: 09/05/23 - Chief Complaint Medical management - History of Present Illness 72-year-old woman with a medical history of hypothyroidism, hyperlipidemia presented for left shoulder arthroplasty. Patient underwent successful procedure today medicine was consulted afterwards for medical management. Patient has no complaints at this time. Upon evaluation, patient was afebrile, 109/58, heart rate 66, 96% on 2 L of nasal cannula. No labs to review. Shoulder x-ray shows left shoulder prosthesis in place, fracture fragment present posterior to the prosthesis. All Systems reviewed and pertinent positives and negatives noted in HPI, all other symptoms are negative Gen: in no apparent distress, resting comfortably in bed Eyes: PERRL, no scleral injection or icterus HENT: normocephalic, atraumatic, good hearing acuity, moist mucous membranes Neck: no tracheal deviation, full range of motion Resp: good air exchange, breathing comfortably with no accessory muscle use, no tactile fremitus CVS: good distal perfusion x 4, no pitting edema GI: soft, NTTP, ND, no hepatosplenomegaly : no suprapubic tenderness, no CVAT, pratt catheter not present MSK: no clubbing, no cyanosis, no noted contractures of extremities Skin: no noted rashes, petechiae; temperature of skin is appropriate Neuro: moving all extremities without signs of weakness, CN II-XII intact Psych: cooperative, euthymic mood, insight and judgment intact Assessment/plan: Hypothyroidism -Resume levothyroxine Hyperlipidemia -Resume rosuvastatin Left shoulder arthroplasty, status post -Care per primary team -Pain control -CBC, basic metabolic panel tomorrow morning Patient is full code Past Medical History Past Medical History: Hyperlipidemia, Osteoarthritis (OA), Thyroid Disorder Additional Past Medical History / Comment(s): osteoporosis, fell and fx shoulder wrist on lft History of Any Multi-Drug Resistant Organisms: None Reported Past Surgical History: Bladder Surgery, Orthopedic Surgery Additional Past Surgical History / Comment(s): ORIF rt wrist, repair lft wrist 08/29/23 Past Anesthesia/Blood Transfusion Reactions: No Reported Reaction Smoking Status: Former smoker - Past Family History Brother(s) Family Medical History: Cancer Medications and Allergies Home Medications Medication Instructions Recorded Confirmed Type Ascorbic Acid [Vitamin C] 500 mg PO MOTUWETHFR 02/28/17 08/29/23 History Cholecalciferol [Vitamin D3] 1,000 unit PO MOTUWETHFR 02/28/17 08/29/23 History Levothyroxine Sodium [Levo-T] 75 mcg PO DAILY 02/28/17 08/29/23 History Calcium Carbonate [Calcium] 600 mg PO MOTUWETHFR 09/04/19 08/29/23 History Cyanocobalamin [Vitamin B-12] 500 mcg PO MOTUWETHFR 09/04/19 08/29/23 History Vitamin E (Dl,Tocopheryl Acet) 400 unit PO MOTUWETHFR 09/04/19 08/29/23 History [Vitamin E] Rosuvastatin Calcium 5 mg PO HS 08/29/23 08/29/23 History oxyCODONE HCL/ACETAMINOPHEN 1 tab PO DIRECTED PRN 08/29/23 08/29/23 History [oxyCODONE HCL/ACETAMINOPHEN 5-325] Allergies Allergy/AdvReac Type Severity Reaction Status Date / Time No Known Allergies Allergy Verified 09/05/23 12:02 Physical Exam Osteopathic Statement: *. No significant issues noted on an osteopathic structural exam other than those noted in the History and Physical/Consult. Vitals: Vital Signs Temp Pulse Pulse Resp BP Pulse Ox 09/05/23 17:18 66 16 109/58 96 09/05/23 17:03 67 16 112/56 95 09/05/23 16:47 68 16 111/59 99 09/05/23 16:30 79 16 127/65 99 09/05/23 16:12 97 F L 81 16 131/62 99 09/05/23 13:04 61 16 138/70 99 09/05/23 12:02 97.5 F L 63 16 135/63 99 Intake and Output 09/05/23 09/05/23 09/05/23 06:59 14:59 22:59 Intake Total 1151 200 Output Total 100 Balance 1151 100 Intake: IV 1151 200 Output: Estimated Blood Loss 100 Other: Weight 71.7 kg
[2023-09-05] MEDS: ASCORBIC ACID 500 MG TAB PO SCH (19:17)
[2023-09-05] MEDS: CYANOCOBALAMIN 500 MCG TAB PO SCH (19:17)
[2023-09-05] MEDS: CHOLECALCIFEROL 25 MCG (1000 IU) TABLET PO SCH (19:18)
[2023-09-05] MEDS: CALCIUM CARBONATE 500 MG CHEWABLE PO SCH ×2 (19:18→19:22)
[2023-09-05] MEDS: VITAMIN E (DL,TOCOPHERYL ACET) 400 UNIT (180 MG) CAP PO SCH (20:54)
[2023-09-05] MEDS ORDERED: ATORVASTATIN 10 MG TAB PO SCH (21:00)
[2023-09-06] MEDS ORDERED: LEVOTHYROXINE 75 MCG TAB PO SCH (06:30)
[2023-09-06 07:56] VITALS: BP 92/54; PULSE 64; RESP 15; TEMP 97.7
[2023-09-06] MEDS: oxyCODONE-APAP 5-325MG 1 EACH TAB PO PRN ×2 (08:17)
--- NOTE | 2023-09-06 08:52 | P.DS ---
Providers Expected date of discharge: 09/06/23 Attending physician: Sirisha Whiteside DO Consults: 09/05/23 13:15 Consult Physician Routine Consulting Provider: Juan Feng Consult Reason/Comments: medical management Do you want consulting provider notified?: Yes Primary care physician: Pool Singh - Discharge Diagnosis(es) (1) Closed fracture of left proximal humerus Current Visit: Yes Status: Acute (2) Status post reverse arthroplasty of left shoulder Current Visit: Yes Status: Acute (3) Distal radius fracture, left Current Visit: Yes Status: Acute (4) Status post wrist surgery Current Visit: Yes Status: Acute Hospital Course: This is a 72-year-old female who recently fractured her left proximal humerus after sustaining a fall and presented to the office for further care and treatment by orthopedic surgery. After discussion and consideration the patient elects to proceed with left reverse shoulder arthroplasty. The pt is seen preoperatively by their family physician and cleared for surgery. The patient is admitted to [facility] on 09/05/2023 for left reverse shoulder arthroplasty. She is doing well postoperatively. Vital signs are stable. Labs are pending. The patient is able to get up out of bed independently and is ambulating without assistance. Pain is well controlled. Patient is discharged to home on postoperative day #1 in stable condition. Please see med rec for accurate list of home medications. Patient Condition at Discharge: Stable Plan - Discharge Summary Discharge Rx Participant: No New Discharge Prescriptions: No Action Levothyroxine Sodium [Levo-T] 75 mcg PO DAILY Cholecalciferol [Vitamin D3] 1,000 unit PO MOTUWETHFR Ascorbic Acid [Vitamin C] 500 mg PO MOTUWETHFR Cyanocobalamin [Vitamin B-12] 500 mcg PO MOTUWETHFR Calcium Carbonate [Calcium] 600 mg PO MOTUWETHFR Vitamin E (Dl,Tocopheryl Acet) [Vitamin E] 400 unit PO MOTUWETHFR oxyCODONE HCL/ACETAMINOPHEN [oxyCODONE HCL/ACETAMINOPHEN 5-325] 1 tab PO DIRECTED PRN PRN Reason: Pain Rosuvastatin Calcium 5 mg PO HS Discharge Medication List Ascorbic Acid [Vitamin C] 500 mg PO MOTUWETHFR 02/28/17 [History] Cholecalciferol [Vitamin D3] 1,000 unit PO MOTUWETHFR 02/28/17 [History] Levothyroxine Sodium [Levo-T] 75 mcg PO DAILY 02/28/17 [History] Calcium Carbonate [Calcium] 600 mg PO MOTUWETHFR 09/04/19 [History] Cyanocobalamin [Vitamin B-12] 500 mcg PO MOTUWETHFR 09/04/19 [History] Vitamin E (Dl,Tocopheryl Acet) [Vitamin E] 400 unit PO MOTUWETHFR 09/04/19 [History] Rosuvastatin Calcium 5 mg PO HS 08/29/23 [History] oxyCODONE HCL/ACETAMINOPHEN [oxyCODONE HCL/ACETAMINOPHEN 5-325] 1 tab PO DIRECTED PRN 08/29/23 [History] Follow up Appointment(s)/Referral(s): Judy Alvarez, NPC [Nurse Practitioner] - 09/11/23 (Already scheduled.) Activity/Diet/Wound Care/Special Instructions: Keep Prevena wound vac in place until follow up next week. Wrist brace for comfort. May remove for bathing only. May wash directly over wrist incision. Ice to shoulder and wrist. Continue finger motion to prevent stiffness. Keep arm in sling but may come out for elbow range of motion exercises. May take over the counter stool softeners as needed for constipation due to pain medication. Follow up with next week (Monday09/11/23) as scheduled for wrist and shoulder. Call [facility] with any questions or concerns, Discharge Disposition: HOME SELF-CARE
[2023-09-06] MEDS: ASCORBIC ACID 500 MG TAB PO SCH (09:30)
[2023-09-06] MEDS: CYANOCOBALAMIN 500 MCG TAB PO SCH (09:30)
[2023-09-06] MEDS: CALCIUM CARBONATE 500 MG CHEWABLE PO SCH (09:31)
[2023-09-06] MEDS ORDERED: IBUPROFEN 400 MG TAB PO STA (09:31)
[2023-09-06] MEDS: CHOLECALCIFEROL 25 MCG (1000 IU) TABLET PO SCH (09:31)
[2023-09-06] MEDS: VITAMIN E (DL,TOCOPHERYL ACET) 400 UNIT (180 MG) CAP PO SCH (09:31)
[2023-09-06] MEDS: LACTATED RINGERS 1,000 ML IV SCH (10:03)
[2023-09-06 11:00] LABS: Basophils # (A) 0.02 X 10*3/uL (0.00-0.10); Basophils % (A) 0.2 %; Eosinophils # (A) 0 X 10*3/uL (0.04-0.35); Eosinophils % (A) 0 %; HCT 28.6 % (37.2-46.3); HGB 9.3 d/dL (12.0-15.0); Lymphocytes # (A) 1.03 X 10*3/uL (0.90-5.00); Lymphocytes % (A) 8.5 %; MCH 29.7 pg (27.0-32.0); MCHC 32.5 d/dL (32.0-37.0); MCV 91.4 FL (80.0-97.0); Mean Platelet Volume 10.9 FL (9.5-12.2); Monocytes # (A) 0.89 X 10*3/uL (0.20-1.00); Monocytes % (A) 7.4 %; NRBC Per 100 WBC 0 X 10*3/uL (0.00-0.01); Neutrophils # (A) 10.06 X 10*3/uL (1.80-7.70); Neutrophils % (A) 83.4 %; Platelet Count 250 X 10*3/uL (140-440); RBC 3.13 X 10*6/uL (4.10-5.20); RDW 12.3 % (11.5-14.5); WBC 12.06 X 10*3/uL (4.50-10.00)
[2023-09-06 11:14] LABS: BUN/Creat Ratio 20.91 Ratio (12.00-20.00); Calcium 9.1 mg/dL (8.7-10.3); Carbon Dioxide 22.7 mmol/L (21.6-31.8); Chloride 104 mmol/L (96-109); Glucose 118 mg/dL (70-110); Potassium 4.7 mmol/L (3.5-5.5); Sodium 139 mmol/L (135-145)
--- NOTE | 2023-09-06 14:58 | P.PN ---
Subjective Progress Note Date: 09/06/23 No new complaints. Medically stable for discharge Gen: in no apparent distress, resting comfortably in bed Eyes: PERRL, no scleral injection or icterus HENT: normocephalic, atraumatic, good hearing acuity, moist mucous membranes Neck: no tracheal deviation, full range of motion Resp: good air exchange, breathing comfortably with no accessory muscle use, no tactile fremitus CVS: good distal perfusion x 4, no pitting edema GI: soft, NTTP, ND, no hepatosplenomegaly : no suprapubic tenderness, no CVAT, pratt catheter not present MSK: no clubbing, no cyanosis, no noted contractures of extremities Skin: no noted rashes, petechiae; temperature of skin is appropriate Neuro: moving all extremities without signs of weakness, CN II-XII intact Psych: cooperative, euthymic mood, insight and judgment intact Assessment/plan: Hypothyroidism -Resume levothyroxine Hyperlipidemia -Resume rosuvastatin Left shoulder arthroplasty, status post -Care per primary team -Pain control -CBC, basic metabolic panel tomorrow morning Patient is full code Objective - Vital Signs Vital signs: Vital Signs Temp 97.7 F 09/06/23 07:48 Pulse 64 09/06/23 07:48 Resp 15 09/06/23 07:48 BP 92/54 09/06/23 07:48 Pulse Ox 93 L 09/06/23 07:48 FiO2 Intake & Output 09/05/23 09/06/23 09/06/23 18:59 06:59 18:59 Intake Total 1831 Output Total 100 Balance 1731 Weight 71.7 kg 71.7 kg Intake: IV 1351 Oral 480 Output: Estimated Blood Loss 100 Other: Voiding Method Toilet Toilet # Voids 1 3 - Labs CBC & Chem 7: 09/06/23 06:40 09/06/23 06:40 Labs: Abnormal Lab Results - Last 24 Hours (Table) 09/06/23 09/06/23 Range/Units 06:40 06:40 WBC 12.06 H (4.50-10.00) X 10*3/uL RBC 3.13 L (4.10-5.20) X 10*6/uL Hgb 9.3 L (12.0-15.0) d/dL Hct 28.6 L (37.2-46.3) % Neutrophils # 10.06 H (1.80-7.70) X 10*3/uL Eosinophils # 0 L (0.04-0.35) X 10*3/uL Anion Gap 12.30 H (4.00-12.00) mmol/L Est GFR (CKD-EPI) 53 L (>=60) BUN/Creatinine Ratio 20.91 H (12.00-20.00) Ratio Glucose 118 H (70-110) mg/dL
== END 2023-09-06 10:30 | disposition home or self-care (01) ==
LOC: OR 11:03 → 4SSUR 15:56 → OR 09-06 10:30
PROVIDERS: ATTEND Orthopaedic Surgery Hand Surgery
DX: S42.202A Unspecified fracture of upper end of left humerus, initial encounter for closed fracture (principal); G89.18 Other acute postprocedural pain; E03.9 Hypothyroidism, unspecified; E78.5 Hyperlipidemia, unspecified; M19.90 Unspecified osteoarthritis, unspecified site; M81.0 Age-related osteoporosis without current pathological fracture; Z87.891 Personal history of nicotine dependence; Z79.890 Hormone replacement therapy; W18.30XA Fall on same level, unspecified, initial encounter; Z79.899 Other long term (current) drug therapy
CPT/HCPCS: 64415; 80048; 85025; 73020; 23472; C1713; J2250; J1100; J0690 ×3; J2405

== ENCOUNTER → 2024-04-17 | Outpatient (CLI) | payer MEDICARE ==
--- NOTE | 2024-04-17 12:19 | BD ---
EXAMINATION TYPE: Axial Bone Density DATE OF EXAM: 04/17/2024 CLINICAL HISTORY: 73 years old Female. ICD-10 CODE: M81.0 AGE RELATED OSTEO Height: 5 ft 1 in Weight: 159 FRAX RISK QUESTIONS: Alcohol (3 or more units per day): no Family History (Parent hip fracture): no Glucocorticoids (More than 3mos): no (Ex: prednisone, prednisolone, methylprednisolone, dexamethasone, and hydrocortisone). History of Fracture in Adulthood: yes Secondary Osteoporosis: 1. Type 1 Diabetes: no 2. Hyperthyroidism: no 3. Menopause before 45: no 4. Malnutrition: no 5. Chronic liver disease: no Rheumatoid Arthritis: no Current Tobacco Use: no RISK FACTORS HISTORY OF: History of Wrist Fracture: left wrist / rt wrist age 39 When: 09/11 Surgery to Spine/Hip(right/left)/Wrist (right/left): left wrist When: 09/11 MEDICATIONS: Thyroid Medications: yes Which medication: levothyroxine How Lon years Osteoporosis Medications: was on prolia no longer takes EXAM MEASUREMENTS: Bone mineral densitometry was performed using the [employer]. Bone mineral density as measured about the Lumbar spine is: ----- L1-L4(G/cm2): 1.022 T Score Values are as follows: ----- L1: -0.7 ----- L2: -2.1 ----- L3: -1.5 ----- L4: -1.1 ----- L1-L4: -1.3 Z Score Values are as follows: ----- L1: 0.8 ----- L2: -0.6 ----- L3: 0.0 ----- L4: 0.4 ----- L1-L4: 0.2 Bone mineral density has: decreased -2.2 % since study of: 2020 Bone mineral density about the R hip (g/cm2): 0.720 Bone mineral density about the L hip (g/cm2): 0.703 T Score values are as follows: -----R Neck: -2.3 -----L Neck: -2.4 -----R Total: -1.3 -----L Total: -1.9 Z Score values are as follows: -----R Neck: -0.6 -----L Neck: -0.7 -----R Total: 0.2 -----L Total: -0.4 Bone mineral density has: decreased -5.6 % since study of: 2020 FRAX%s: The graph provided illustrates a 13.6 % chance for a major osteoporotic fx and a 3.7 % chance for the hips probability for fx in 10 years time. IMPRESSION: Osteopenia (T Score between -2.5 and -1). There is slightly increased risk of fracture and the patient may be considered for treatment. Re-Screen 2-5 years. NOTE: T-SCORE=SD OF THE YOUNG ADULT MEAN.
--- NOTE | 2024-04-17 22:30 | MM ---
Reason for Exam: Screening (asymptomatic). Last mammogram was performed 1 year(s) and 6 month(s) ago. Patient History: Menarche at age 14. First Full-Term at age 22. Postmenopausal. Risk Values: Sheri 5 year model risk: 1.4%. NCI Lifetime model risk: 3.3%. Prior Study Comparison: 06/12/2020 Bilateral Screening Mammogram, [facility]. 07/30/2021 Bilateral Screening Mammogram, [facility]. 10/19/2022 Bilateral MG 3D screening mammo w/cad, [facility]. Tissue Density: There are scattered areas of fibroglandular density. Findings: Analyzed By CAD. The pattern is symmetrical. Focal asymmetric density is within posterior 12:00 position left breast is stable. No suspicious groups of microcalcifications, spiculated or lobular masses, architectural distortion or other secondary signs of malignancy are mammographically apparent. Overall Assessment: Benign, BI-RAD 2 Management: Screening Mammogram of both breasts in 1 year. A negative mammogram report should not preclude additional follow up of suspicious palpable abnormalities. Patient should continue monthly self breast exam. A clinical breast exam by your physician is recommended on an annual basis and results should be correlated with mammographic findings. Note on Sheri scores and lifetime risk: 1. A Sheri score greater than 3% is considered moderate risk. If this is the case, consider specialist referral to assess eligibility for a risk reducing agent. 2. If overall lifetime risk for the development of breast cancer is 20% or higher, the patient may qualify for future screening with alternating mammogram and breast MRI. Electronically signed and approved by: Roddy Calrk D.O. Radiologis
== END | disposition home or self-care (01) ==
LOC: RADBDWWP 10:47
PROVIDERS: ATTEND Family Medicine
DX: Z12.31 Encounter for screening mammogram for malignant neoplasm of breast (principal); M85.89 Other specified disorders of bone density and structure, multiple sites; M81.0 Age-related osteoporosis without current pathological fracture; Z78.0 Asymptomatic menopausal state
CPT/HCPCS: 77063; 77067; 77080